=== PATIENT | female | born 1970 | race Caucasian/White ===

== ENCOUNTER 2017-04-30 09:34 | Inpatient (IN) | payer BC ==
[2017-04-30] MEDS ORDERED: Celecoxib 200 MG Cap PO ONE (09:45)
[2017-04-30] MEDS ORDERED: Acetaminophen 500 MG Tab PO ONE (09:45)
[2017-04-30] MEDS ORDERED: Gabapentin 300 MG Cap PO ONE (09:45)
[2017-04-30] MEDS ORDERED: Scopolamine 1.5 MG Transdermal Patch TOP SCH (09:45)
[2017-04-30] MEDS ORDERED: Dextrose 5%-Lactated Ringers 1,000 ML IV SCH ×2 (10:00→17:00)
[2017-04-30] MEDS ORDERED: Ropivacaine 60 ML, Dexamethasone 8 MG, EPINEPHrine 0.4 MG, Sodium Chloride 0.9% 17.6 ML NERVRT SCH ×4 (11:00)
[2017-04-30] MEDS ORDERED: Propofol 200 MG/20 ML SDV ONE (11:00)
[2017-04-30] MEDS ORDERED: Ketamine 500 MG/5 ML MDV IV ONE (11:00)
[2017-04-30] MEDS ORDERED: Lactated Ringers 1,000 ML ONE (11:00)
[2017-04-30] MEDS ORDERED: Lidocaine 2% 100 MG/5 ML Syringe IVPUSH ONE (11:00)
[2017-04-30] MEDS ORDERED: Neostigmine Methylsulfate 1 MG/ML 5 ML Syringe ONE (11:00)
[2017-04-30] MEDS ORDERED: Ondansetron 4 MG/2 ML SDV ONE (11:00)
[2017-04-30] MEDS ORDERED: Succinylcholine 200 MG/10 ML MDV ONE (11:00)
[2017-04-30] MEDS ORDERED: Rocuronium 50 MG/5 ML Vial ONE (11:00)
[2017-04-30] MEDS ORDERED: Dexamethasone 4 MG/ML SDV ONE (11:00)
[2017-04-30] MEDS ORDERED: Glycopyrrolate 0.2 MG/ML 5 ML MDV ONE (11:00)
[2017-04-30] MEDS ORDERED: fentaNYL 250 MCG/5 ML SDV ONE (11:01)
[2017-04-30] MEDS ORDERED: cefOXitin 2 GM Vial ONE (11:46)
[2017-04-30] MEDS: cefOXitin 2 GM in Sodium Chloride 0.9% 50 ML IV ONE ×2 (12:44→17:36)
[2017-04-30] MEDS ORDERED: Ondansetron 4 MG/2 ML SDV IVPUSH ONE (15:52)
[2017-04-30] MEDS ORDERED: hydrOXYzine HCl 100 MG/2 ML SDV IM ONE ×3 (16:45→17:46)
[2017-04-30] MEDS ORDERED: Insulin Aspart 100 Units/ML 3 ML Pen SUBCUT PRN (17:00)
[2017-04-30] MEDS ORDERED: hydrOXYzine HCl 100 MG/2 ML SDV IM PRN ×2 (17:00→18:42)
[2017-04-30] MEDS ORDERED: diphenhydrAMINE 50 MG/ML SDV IVPUSH PRN (17:00)
[2017-04-30] MEDS ORDERED: 50% Dextrose in Water 50 ML Syringe IVPUSH PRN (17:00)
[2017-04-30] MEDS ORDERED: Ondansetron 4 MG/2 ML SDV IVPUSH PRN (17:00)
[2017-04-30] MEDS ORDERED: Metoclopramide 10 MG/2 ML SDV IVPUSH PRN (17:00)
[2017-04-30] MEDS ORDERED: Labetalol 20 MG/4 ML Syringe IVPUSH PRN (17:00)
[2017-04-30] MEDS ORDERED: Glucagon,Human Recombinant 1 MG Vial IM PRN (17:00)
[2017-04-30] MEDS: Lidocaine 0.4%/D5W 2 GM/500 ML BAG IV SCH (17:35)
[2017-04-30] MEDS ORDERED: Meperidine PF 100 MG/ML Syringe IM ONE ×2 (17:40)
[2017-04-30] MEDS ORDERED: MVI, Adult with Vitamin K 10 ML, Thiamine 200 MG, Chromium/Copper/Mang/Selen/Zn 1 ML in... IV SCH ×4 (18:00)
[2017-04-30] MEDS: Pantoprazole 40 MG Vial IVPUSH SCH (18:10)
[2017-04-30] MEDS: Acetaminophen Soln 650 MG/20.3 ML UD Cup PO SCH ×2 (18:10→23:23)
[2017-04-30] MEDS: cefOXitin 2 GM in Sodium Chloride 0.9% 50 ML IV SCH ×2 (18:20→23:23)
[2017-04-30] MEDS: Gabapentin 250 MG/5 ML Solution ML 470 ML Bottle PO SCH (20:38)
[2017-04-30] MEDS: Heparin Sodium 5,000 Units/ML Vial SUBCUT SCH (20:38)
[2017-04-30] MEDS ORDERED: Insulin Detemir 100 Units/ML 3 ML Pen SUBCUT SCH (21:00)
[2017-04-30] MEDS ORDERED: Insulin Aspart 100 Units/ML 3 ML Pen SUBCUT STA (22:29)
[2017-04-30] MEDS ORDERED: Insulin Detemir 100 Units/ML 3 ML Pen SUBCUT STA (22:29)
[2017-05-01] MEDS ORDERED: Iohexol 647 MG/ML 50 ML SDV PO STA (04:00)
[2017-05-01] MEDS ORDERED: Insulin Detemir 100 Units/ML 3 ML Pen SUBCUT STA (04:31)
[2017-05-01] MEDS ORDERED: Insulin Aspart 100 Units/ML 3 ML Pen SUBCUT STA (04:31)
[2017-05-01] MEDS: Heparin Sodium 5,000 Units/ML Vial SUBCUT SCH ×2 (05:08→11:58)
[2017-05-01] MEDS: cefOXitin 2 GM in Sodium Chloride 0.9% 50 ML IV SCH (05:12)
[2017-05-01] MEDS: Acetaminophen Soln 650 MG/20.3 ML UD Cup PO SCH ×4 (05:18→23:49)
[2017-05-01] MEDS: Lidocaine 0.4%/D5W 2 GM/500 ML BAG IV SCH (05:22)
[2017-05-01] MEDS ORDERED: Betamethasone Dipropionate/Clotrimazole 0.05-1% Crm 15 GM Tube TOP PRN (07:26)
[2017-05-01] MEDS ORDERED: Enoxaparin 60 MG/0.6 ML Syringe SUBCUT SCH ×2 (07:30→17:00)
[2017-05-01] MEDS ORDERED: Celecoxib 200 MG Cap PO SCH (08:00)
--- NOTE | 2017-05-01 08:28 | CR ---
UGI wo KUB HISTORY: eval RYGBP FINDINGS: After administration of oral contrast, upright views were obtained. Post operative changes gastric bypass. Surgical drains in place. No evidence for leak. Contrast passes freely into proximal small bowel loops. IMPRESSION: No evidence for leak or obstruction.
[2017-05-01] MEDS: SCOPOLAMINE PATCH CHECK TOP SCH (08:56)
[2017-05-01] MEDS: amLODIPine 10 MG Tab PO SCH (08:58)
[2017-05-01] MEDS: Cetirizine 10 MG Tab PO SCH (08:59)
[2017-05-01] MEDS ORDERED: Non-Formulary Medication 1 Each (Levothyroxine Sodium [Synthroid] 137 MCG) PO SCH (09:00)
[2017-05-01] MEDS ORDERED: MVI, Adult with Vitamin K 10 ML, Chromium/Copper/Mang/Selen/Zn 1 ML, Thiamine 200 MG in... IV SCH ×4 (09:00)
[2017-05-01] MEDS ORDERED: Non-Formulary Medication 1 Each (Cetirizine Hcl [Zyrtec] 10 MG) PO SCH (09:00)
[2017-05-01] MEDS: Metoprolol Succinate 50 MG Tab.ER PO SCH ×2 (09:00→22:03)
[2017-05-01] MEDS: Gabapentin 250 MG/5 ML Solution ML 470 ML Bottle PO SCH ×3 (09:41→22:03)
--- NOTE | 2017-05-01 09:44 | PN ---
DATE OF SERVICE: 05/01/2017 SUBJECTIVE: Latanya is postop day #1. She states her pain is controlled. Temperature max of 100. Blood sugar on 04/30/2017 at 1645 hours was 268; at 2248 hours, it was 356; and this morning, at 0509 hours, it was 491. She has been getting coverage for her sugars. Intake was 3280. Output 515. MAGNO drain put out 65 mL of a light pink serosanguineous drainage. Labs this morning; white count 11.5, hemoglobin 10.5, potassium is 5.9, creatinine 4.2, and glucose 445. BNP 734. REVIEW OF SYSTEMS: Remainder of review of systems negative for any pertinent positives and negatives. OBJECTIVE: GENERAL: Latanya Cotto is a pleasant 46-year-old female. She is alert and orientated. VITAL SIGNS: TPR is 99.5, 83, 18, and blood pressure 161/73. HEENT: Negative. NECK: Supple. HEART: Regular rate and rhythm. LUNGS: Clear. ABDOMEN: Dressings dry and intact. Abdominal binder is on. MAGNO drain intact. EXTREMITIES: SCDs are on, and there is trace peripheral edema. ASSESSMENT: Diagnostic laparoscopy with laparoscopic sleeve gastrectomy and liver biopsy for morbid obesity, hepatomegaly, and extreme immobility of abdominal wall and small bowel mesentery. Date of surgery, 04/30/2017. PLAN: 1. Step-2 gastric bypass diet without cereal. 2. All sugar-free foods, liquids, no juice. 3. IV to continue running at 175. 4. Check CBC, CMP, mag, phos, and BNP. 5. Consult Dr. Lang regarding diabetes uncontrolled, chronic kidney disease, congestive heart failure, and consultation regarding medication, consult per phone call. 6. Daily PT and INR. 7. Amlodipine 10 mg p.o. daily. 8. Betamethasone-clotrimazole 1 applicator topical b.i.d. p.r.n. rash. 9. Cetirizine, Zyrtec, 10 mg p.o. daily. 10.Levothyroxine 137 mcg p.o. daily. 11.Coumadin 7.5 mg p.o. one time, ask in a.m. 12.Metoprolol succinate 50 mg p.o. b.i.d. 13.Good pulmonary toilet. 14.We will evaluate p.r.n. or in a.m. Yissel Steinberg PA-C /[id number]
[2017-05-01] MEDS ORDERED: Insulin Aspart 100 Units/ML 3 ML Pen SUBCUT ONE ×2 (10:15→17:00)
[2017-05-01] MEDS ORDERED: Insulin Detemir 100 Units/ML 3 ML Pen SUBCUT SCH ×2 (10:43→21:00)
[2017-05-01] MEDS: Lactated Ringers 1,000 ML IV SCH ×2 (11:09→23:28)
--- NOTE | 2017-05-01 12:53 | PCM.CONS ---
H&P History of Present Illness - General Date of Service: 05/01/17 Admit Problem/Dx: Source of Information: Patient, Family, Provider, RN Notes Reviewed History Limitations: Reports: No Limitations - History of Present Illness Initial Comments - Free Text/Narative: This patient is a 46-year-old woman who I been asked to see by Dr. Biggs for further suggestions concerning evaluation and management of acute on chronic kidney injury, hyperkalemia, and hyperglycemia. She was admitted yesterday for Eliazar-en-Y gastric bypass surgery for chronic morbid obesity. There were unable to complete the gastric bypass so a gastric sleeve was placed. At baseline she has chronic kidney disease stage III, since admission her creatinine has increased from 2.4 up to 4.2. Glucose levels have been elevated and with acute kidney injury her potassium has become elevated. She reports that she is feeling relatively well denies any symptoms of chest pain or pressure or significant shortness of breath. Abdomen Pain Score (Numeric/FACES): 0 - Related Data Allergies/Adverse Reactions: Allergies Allergy/AdvReac Type Severity Reaction Status Date / Time chocolate flavor Allergy Rash Verified 04/30/17 10:16 Penicillins Allergy Rash Verified 04/30/17 10:16 Home Medications: Home Meds Ascorbic Acid [Vitamin C] 100 mg PO DAILY 04/26/17 [History] Aspirin [Halfprin] 81 mg PO DAILY 04/26/17 [History] Cetirizine HCl [Zyrtec] 10 mg PO DAILY 04/26/17 [History] Clotrimazole/Betamethasone Dip [Lotrisone Cream] 1 applic TOP BID PRN 04/26/17 [ History] Ergocalciferol (Vitamin D2) [Vitamin D2] 50,000 units PO WEEKLY 04/26/17 [ History] Ferrous Sulfate 140 mg PO DAILY 04/26/17 [History] Furosemide [Lasix] 40 mg PO DAILY 04/26/17 [History] Gabapentin [Neurontin] 300 mg PO BID 04/26/17 [History] Insulin Aspart [Novolog Flexpen] 40 - 45 units SQ TIDMEALS 04/26/17 [History] Insulin Isophane NPH, Human [HumuLIN N] 35 unit SUBCUT BIDAC 04/26/17 [History] Levothyroxine Sodium [Synthroid] 137 mcg PO DAILY 04/26/17 [History] Magnesium Oxide [Magnesium] 400 mg PO DAILY 04/26/17 [History] Metoprolol Succinate [Metoprolol Succinate] 100 mg PO DAILY 04/26/17 [History] Patiromer Calcium Sorbitex [Veltassa] 8.4 gm PO DAILY 04/26/17 [History] Rosuvastatin [Crestor] 20 mg PO WITHDINNER 04/26/17 [History] Warfarin [Coumadin] 5 mg PO FR 04/26/17 [History] hydrOXYzine Pamoate [Vistaril] 25 mg PO Q6H PRN 04/26/17 [History] Furosemide [Lasix] 60 ng PO DAILY 04/30/17 [History] Sodium Bicarbonate 650 mg PO BID 04/30/17 [History] Warfarin [Coumadin] 7.5 mg PO SUMOTUWETHSA 04/30/17 [History] amLODIPine [Norvasc] 10 mg PO DAILY 04/30/17 [History] hydrALAZINE HCl [Hydralazine HCl] 25 mg PO TID 04/30/17 [History] Past Medical History HEENT History: Reports: Allergic Rhinitis, Cataract Cardiovascular History: Reports: Afib, High Cholesterol, Hypertension Respiratory History: Reports: Sleep Apnea Gastrointestinal History: Reports: Hemorrhoids Genitourinary History: Reports: Renal Disease, Other (See Below) Other Genitourinary History: stage 4 kidney disease 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: Endocrine/Metabolic History: Reports: Diabetes, Type II, Hypothyroidism, Obesity /BMI 30+ Hematologic History: Reports: Iron Deficiency Dermatologic History: Reports: Other (See Below) Other Dermatologic History: rash in folds - Infectious Disease History Infectious Disease History: Reports: MRSA, Other (See Below) Other Infectious Disease History: MRSA left leg 3 yrs ago - Past Surgical History Cardiovascular Surgical History: Reports: Other (See Below) Other Cardiovascular Surgeries/Procedures: dialysis shunt left arm Respiratory Surgical History: Reports: Lung Biopsies GI Surgical History: Reports: Cholecystectomy Female Surgical History: Reports: Other (See Below) Other Female Surgeries/Procedures: dialysis shunt left arm Social & Family History - Tobacco Use Smoking Status *Q: Former Smoker Years of Tobacco use: 10 Used Tobacco, but Quit: Yes Month Tobacco Last Used: 0 Second Hand Smoke Exposure: Yes - Caffeine Use Caffeine Use: Reports: Coffee, Tea - Recreational Drug Use Recreational Drug Use: No H&P Review of Systems - Review of Systems: Review Of Systems: See Below General: Reports: Weakness. Denies: Fever, Chills HEENT: Reports: No Symptoms Pulmonary: Reports: No Symptoms Cardiovascular: Reports: No Symptoms Gastrointestinal: Reports: Abdominal Pain. Denies: Black Stool, Bloody Stool, Constipation, Diarrhea, Difficulty Swallowing, Distension, Nausea, Vomiting Genitourinary: Reports: No Symptoms Musculoskeletal: Reports: No Symptoms Exam - Exam Exam: See Below - Vital Signs Vital Signs: Last Vital Signs Temp 99.5 F 05/01/17 11:14 Pulse 83 05/01/17 09:00 Resp 18 05/01/17 11:14 BP 161/73 H 05/01/17 09:00 Pulse Ox 90 L 05/01/17 11:14 Weight: 436 lb 6.4 oz - Exam Quality Assessment: Urinary Catheter, DVT Prophylaxis General: Alert, Oriented, Cooperative, Mild Distress Neck: Supple, Trachea Midline, +2 Carotid Pulse wo Bruit Lungs: Clear to Auscultation, Normal Respiratory Effort Cardiovascular: Regular Rate, Regular Rhythm, Normal S1, Normal S2. No: Systolic Murmur, Diastolic Murmur GI/Abdominal Exam: Soft, No Organomegaly, Tender. No: Distended, Guarding, Rigid, Rebound Back Exam: Normal Inspection, Full Range of Motion Extremities: Non-Tender, No Pedal Edema - Patient Data Lab Results Last 24 hrs: Laboratory Results - last 24 hr 05/01/17 05/01/17 Range/Units 05:00 05:00 WBC 11.5 H (4.5-11.0) K/uL RBC 3.42 (3.30-5.50) M/uL Hgb 10.5 L (12.0-15.0) g/dL Hct 33.7 L (36.0-48.0) % MCV 99 H (80-98) fL MCH 31 (27-31) pg MCHC 31 L (32-36) % Plt Count 181 (150-400) K/uL Sodium 139 L (140-148) mmol/L Potassium 5.9 H (3.6-5.2) mmol/L Chloride 108 (100-108) mmol/L Carbon Dioxide 18 L (21-32) mmol/L Anion Gap 18.9 H (5.0-14.0) mmol/L BUN 54 H (7-18) mg/dL Creatinine 4.2 H* D (0.6-1.0) mg/dL Est Cr Clr Drug Dosing 18.29 mL/min Estimated GFR (MDRD) 11 L (>60) Glucose 445 H* (74-106) mg/dL Calcium 8.4 L (8.5-10.1) mg/dL Phosphorus 4.0 (2.5-4.9) mg/dL Magnesium 2.1 (1.8-2.4) mg/dL Total Bilirubin 0.5 (0.2-1.0) mg/dL AST 37 (15-37) U/L ALT 56 (12-78) U/L Alkaline Phosphatase 49 (46-116) U/L NT-Pro-B Natriuret Pep 734 H (5-125) pg/mL Total Protein 6.4 (6.4-8.2) g/dL Albumin 2.8 L (3.4-5.0) g/dL Globulin 3.6 H (2.3-3.5) g/dL Albumin/Globulin Ratio 0.8 L (1.2-2.2) Result Diagrams: 05/01/17 05:00 05/01/17 05:00 Consult PN Assessment/Plan Procedures: Procedures BLOOD TYPING SEROLOGIC ABO (07/27/16) BLOOD TYPING SEROLOGIC RH(D) (07/27/16) CT THORAX W/O DYE (04/02/14) EXTREMITY STUDY (06/14/16) RBC ANTIBODY SCREEN (07/27/16) ROUTINE VENIPUNCTURE (07/27/16) US EXAM OF HEAD AND NECK (10/30/13) Problem List Initiated/Reviewed/Updated: Yes My Orders Last 24 Hours: My Active Orders 05/01/17 10:43 Insulin Detemir [Levemir] 20 unit SUBCUT BEDTIME 05/01/17 17:00 BASIC METABOLIC PANEL,BMP [CHEM] Stat Plan: ASSESSMENT AND RECOMMENDATIONS ACUTE ON CHRONIC KIDNEY INJURY-at baseline has chronic kidney disease stage III , admission creatinine 2.4, now up to 4.2. Likely prerenal in nature, secondary to postoperative intravascular volume depletion with third spacing. Urine output has improved over the past several hours with ongoing IV hydration. -Continue IV fluids until tomorrow -Closely monitor urine output -Recheck renal function later today and again in a.m. HYPERKALEMIA-likely secondary to acute kidney injury -IV fluids as above -Recheck potassium later today and again in a.m. -Consider rectal Kayexalate if potassium increases any further. TYPE 2 DIABETES MELLITUS-glucose levels significantly elevated after surgery -4 times a day glucometers -Increase long-acting insulins to 20 units daily -Continue sliding scale NovoLog Requesting Provider: SEALS Date Consult Requested: 05/01/17 Reason for Consult: Acute kidney injury, chronic kidney disease, hyperkalemia, hyperg Patient History Reviewed: Yes Notified Requestor: Yes
[2017-05-01] MEDS ORDERED: Warfarin 2.5 MG Tab PO ONE (13:00)
[2017-05-01] MEDS ORDERED: Warfarin 5 MG Tab PO ONE (13:00)
[2017-05-01] MEDS: MVI, Adult with Vitamin K 10 ML, Thiamine 200 MG, Chromium/Copper/Mang/Selen/Zn 1 ML in... IV SCH ×4 (17:04)
[2017-05-01] MEDS: Insulin Aspart 100 Units/ML 3 ML Pen SUBCUT SCH ×2 (17:04→22:08)
[2017-05-01] MEDS: Pantoprazole 40 MG Vial IVPUSH SCH (17:09)
[2017-05-01] MEDS ORDERED: Sodium Polystyrene Sulfonate 15 GM/60 ML Susp 60 ML Bot PO ONE (18:27)
[2017-05-01] MEDS: Enoxaparin 120 MG/0.8 ML Syringe SUBCUT SCH (22:04)
[2017-05-01] MEDS: Sodium Bicarbonate 650 MG Tab PO SCH (22:04)
--- NOTE | 2017-05-01 23:41 | PCM.SN ---
- Free Text/Narrative Note: labs results at 2300. Potassium 5.6, Creatinine 4.5, blood glucose 300 a; improved p; K+ is decreased from 6.1, creatinine is unchanged at 4.5 , blood glucose is decreased. will continue present plan of care, recheck labs in am.
[2017-05-02] MEDS: Insulin Aspart 100 Units/ML 3 ML Pen SUBCUT SCH ×5 (04:26→22:07)
[2017-05-02] MEDS: Lactated Ringers 1,000 ML IV SCH ×2 (05:31→11:23)
[2017-05-02] MEDS: Acetaminophen Soln 650 MG/20.3 ML UD Cup PO SCH ×4 (05:50→23:56)
[2017-05-02] MEDS: Insulin Detemir 100 Units/ML 3 ML Pen SUBCUT SCH ×2 (08:08→22:05)
[2017-05-02] MEDS: SCOPOLAMINE PATCH CHECK TOP SCH (08:08)
[2017-05-02] MEDS ORDERED: Cyanocobalamin (Vitamin B12) 1,000 MCG/ML SDV IM ONE (09:00)
[2017-05-02] MEDS ORDERED: Insulin Detemir 100 Units/ML 3 ML Pen SUBCUT SCH (09:00)
[2017-05-02] MEDS: Gabapentin 250 MG/5 ML Solution ML 470 ML Bottle PO SCH ×3 (09:05→22:03)
[2017-05-02] MEDS: amLODIPine 10 MG Tab PO SCH (09:06)
[2017-05-02] MEDS: Metoprolol Succinate 50 MG Tab.ER PO SCH ×2 (09:10→22:08)
[2017-05-02] MEDS: Cetirizine 10 MG Tab PO SCH (09:11)
[2017-05-02] MEDS: Sodium Bicarbonate 650 MG Tab PO SCH ×2 (09:12→22:08)
--- NOTE | 2017-05-02 09:43 | PN ---
DATE OF SERVICE: 05/02/2017 SUBJECTIVE: Latanya is postop day #2. Hemoglobin was 8.9, INR 1.15, potassium 5.5, creatinine 4.6, and BNP 629. Glucose last checked was 243. MAGNO put out 255 mL of a light pink serosanguineous drainage. Latanya states her pain is controlled. She is tolerating a step-2 gastric bypass diet without cereal. Mullen catheter remains in for accurate intake and output. OBJECTIVE: GENERAL: Latanya is a pleasant 46-year-old female. VITAL SIGNS: TPR is 99.4, 71, 16, and blood pressure 149/62. HEENT: Negative. NECK: Supple. HEART: Regular rate and rhythm. LUNGS: Clear. ABDOMEN: Dressings have been removed. Incisions look good. Abdominal binder is on. MAGNO drain intact. EXTREMITIES: Reveal peripheral edema. ASSESSMENT: 1. Diagnostic laparoscopy with laparoscopic sleeve gastrectomy and liver biopsy for morbid obesity, hepatomegaly, extreme immobility of abdominal wall and small bowel mesentery. Date of surgery, 04/30/2017. 2. Vowsr-kj-hekfqpt kidney injury. 3. Hyperkalemia. 4. Diabetes type 2. PLAN: 1. Levemir 30 units b.i.d. to give a.m. dose now. 2. Coumadin 7.5 mg p.o., ask in a.m. 3. Check CMP, CBC, BMP, mag, and phos in a.m. 4. Communication order to give 3 med cups and to drink one every 20 minutes and record at bedside. 5. Good pulmonary toilet. 6. We will evaluate p.r.n. or in a.m. Yissel Steinberg PA-C /[id number]
[2017-05-02] MEDS ORDERED: Sodium Polystyrene Sulfonate 15 GM/60 ML Susp 60 ML Bot PO ONE (10:00)
--- NOTE | 2017-05-02 11:25 | OR ---
DATE OF PROCEDURE: 04/30/2017 PREOPERATIVE DIAGNOSIS: Morbid obesity. POSTOPERATIVE DIAGNOSES: 1. Morbid obesity. 2. Marked hepatomegaly. 3. 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 OPERATIVE PROCEDURE: Diagnostic laparoscopy with: 1. Laparoscopic sleeve gastrectomy (38518). 2. Ishmael-Cut needle liver biopsy (30142). ANESTHESIA: General. RISK AND COMPLIANCE ANALYTICS DIRECTOR: Yissel Steinberg PA-C. INDICATIONS FOR PROCEDURE: This is a 46-year-old presenting with advanced comorbidities associated with severe morbid obesity, present BMI is 63, and she has advanced diabetes and renal insufficiency with a preoperative creatinine of 2.5 and history of some degree of cardiomyopathy. After lengthy discussion and clearance by Cardiology and a renal specialist, the decision was made to proceed with a gastric bypass procedure. As discussed with the patient preoperatively, patients in her subgroup at times will have severely limited mobility of the small bowel, which might necessitate converting from a gastric bypass to a sleeve gastrectomy. Otherwise, potential risks per se, including bleeding, infection, leaks from various GI tract closures, problems with bowel obstruction over time, as well as possibility of cardiopulmonary, septic, or hemorrhagic complications leading to were all discussed, and the patient wishes to proceed. DETAILS OF THE PROCEDURE: The patient was taken to the operating room and placed in a supine position. After general endotracheal anesthesia was induced, the abdomen was prepped and draped, and the patient converted to lithotomy position. An oral gastric tube was placed. At this point, 15 cm inferior, 5 cm left of xiphoid process, a transverse incision was made and the peritoneal cavity entered under direct vision with an Optiview trocar and inflated to 15 mmHg pressure with CO2. Laparoscope was then reinserted. No underlying trocar insertion site injuries were seen. With internal monitoring, the bilateral subcostal transversus abdominis plane blocks were placed, and at that point, 5 additional trocars were placed across the upper and mid abdomen. It was noted that the patient had a quite striking hepatomegaly with liver being grossly fatty infiltrated and at least 3 times normal size. Ishmael-Cut needle biopsies were obtained from the left lobe of the liver. Minimal bleeding from the biopsy site was controlled with electrocautery. At this point, the omentum was divided in the midline up to the level of the transverse colon. By this time, it was quite notable that the patient had an extremely immobile abdominal wall, perhaps related to longstanding diabetes with increased density of her soft tissues per se. As one then began to mobilize the small bowel, as one got past around 100 cm from the ligament of Treitz, the beginning of the small bowel was extremely immobile as well, and a satisfactory Eliazar-en-Y gastric bypass, in terms of a safe gastrojejunostomy without significant tension, would be difficult to achieve, and a decision to proceed with a sleeve gastrectomy was made at that time. At this point, attention was taken to the omentum along the mid greater curvature. This was divided away from the greater curvature of the stomach up to the short gastric vessels, including the highest and posterior short gastric vessels. The attachments to the fundus of the stomach medially over the left rajat were then divided as well, and at that point, some areolar adhesions behind that portion of the stomach were taken down as well. The dissection then continued distally along the greater curvature to a point roughly 3 cm proximal to the pyloric sphincter, which at that point had been marked with electrocautery. Due to the immobility of the abdominal wall, three additional trocars were placed during the course of the procedure, as some of the standard trocar locations simply did not allow us to manipulate the staplers and other instruments in an appropriate angle, due to the severe immobility of the abdominal wall. At this point, an antral resection line and extending upward inferior to the incisura angularis was marked out anteriorly on the stomach with electrocautery, and the first three firings of the sleeve were then accomplished, beginning 3 cm proximal to the pyloric sphincter and care taken to avoid overtightening at the incisura angularis. The first three firings were GAVIN black loads. Following this, a 32-Kinyarwanda chest tube was then placed orally per Anesthesia and positioned along the lesser curvature, from there into the antrum. The remainder of the sleeve gastrectomy was then accomplished with a combination of reinforced black and purple loads, maintaining reasonably snug apposition of the staple line to the chest tube as it lay across the lesser curvature. Upon completion of the gastrectomy, the staple lines were inspected and found to be satisfactorily intact. At this point, the fibrin sealant was placed along the length of the sleeve gastrectomy, focusing on the proximal end. The omentum was then tacked up along the edges of the sleeve gastrectomy as well with some 3-0 Vicryl stitch. At that point, no further problems were noted. The chest tube had been pulled back roughly into the midportion of the remaining gastric sleeve and air injected to distend the sleeve while it was irrigated with antibiotic- containing saline solution. No bleeding or air leaks were visible. At that point, no further problems were noted. The specimen was delivered through the left lateral trocar site, and a single Goldy-Alexander drain was then placed along the area of the proximal end of the staple line and, from there, into the splenic fossa, and taken out through the left lateral trocar sites. With no further problems noted, the trocars were removed, the fascia at the lateral site where the stomach had been delivered was closed with 0 Vicryl stitch, and the skin at each incision was closed with 4-0 Vicryl skin stitch. Dressing was applied. The patient was taken to the recovery room in satisfactory condition. There were no evident complications. Physician's certified anesthesiologist assistant Yissel Steinberg played an essential role in assisting in this case, helping to position the patient, retract structures as needed, as well as suturing and cutting sutures as indicated. Her presence improved patient safety and decreased operative time. Ventura Biggs MD /[id number]
[2017-05-02] MEDS ORDERED: Warfarin 2.5 MG Tab PO ONE (13:00)
--- NOTE | 2017-05-02 13:52 | PCM.CONSN ---
- General Info Date of Service: 05/02/17 Subjective Update: This patient has been stable over the past 24 hours, vital signs of been good and she has remained afebrile. Urine output has been more than adequate since yesterday morning, creatinine seems to a peaked and potassium is improved. Blood glucose levels under better control with change in insulin regimen. Functional Status: Reports: Pain Controlled, Tolerating Diet, Ambulating - Review of Systems General: Denies: Fever, Chills Pulmonary: Reports: No Symptoms Cardiovascular: Reports: No Symptoms Gastrointestinal: Reports: Abdominal Pain, Flatus. Denies: Nausea, Vomiting - Patient Data Vitals - Most Recent: Last Vital Signs Temp 98.7 F 05/02/17 11:25 Pulse 74 05/02/17 11:25 Resp 18 05/02/17 11:25 BP 165/75 H 05/02/17 11:25 Pulse Ox 96 05/02/17 11:25 Weight - Most Recent: 436 lb 6.4 oz I&O - Last 24 Hours: Intake & Output 05/01/17 05/02/17 05/02/17 22:59 06:59 14:59 Intake Total 3009 2791 890 Output Total 445 825 85 Balance 2564 1966 805 Lab Results Last 24 Hours: Laboratory Results - last 24 hr 05/01/17 05/01/17 05/02/17 Range/Units 17:18 23:15 04:20 WBC 11.3 H (4.5-11.0) K/uL RBC 2.84 L (3.30-5.50) M/uL Hgb 8.9 L (12.0-15.0) g/dL Hct 28.2 L (36.0-48.0) % MCV 99 H (80-98) fL MCH 31 (27-31) pg MCHC 32 (32-36) % Plt Count 164 (150-400) K/uL PT (9.5-12.0) sec INR (0.80-1.20) Sodium 138 L 139 L (140-148) mmol/L Potassium 6.1 H* 5.8 H (3.6-5.2) mmol/L Chloride 109 H 109 H (100-108) mmol/L Carbon Dioxide 17 L 20 L (21-32) mmol/L Anion Gap 18.1 H 15.8 H (5.0-14.0) mmol/L BUN 59 H 57 H (7-18) mg/dL Creatinine 4.5 H* 4.5 H* (0.6-1.0) mg/dL Est Cr Clr Drug Dosing 17.07 17.07 mL/min Estimated GFR (MDRD) 11 L 11 L (>60) Glucose 388 H 300 H (74-106) mg/dL Calcium 7.8 L 7.5 L (8.5-10.1) mg/dL Phosphorus (2.5-4.9) mg/dL Magnesium (1.8-2.4) mg/dL Total Bilirubin (0.2-1.0) mg/dL AST (15-37) U/L ALT (12-78) U/L Alkaline Phosphatase (46-116) U/L NT-Pro-B Natriuret Pep (5-125) pg/mL Total Protein (6.4-8.2) g/dL Albumin (3.4-5.0) g/dL Globulin (2.3-3.5) g/dL Albumin/Globulin Ratio (1.2-2.2) 05/02/17 05/02/17 Range/Units 04:20 04:20 WBC (4.5-11.0) K/uL RBC (3.30-5.50) M/uL Hgb (12.0-15.0) g/dL Hct (36.0-48.0) % MCV (80-98) fL MCH (27-31) pg MCHC (32-36) % Plt Count (150-400) K/uL PT 12.4 H (9.5-12.0) sec INR 1.15 (0.80-1.20) Sodium 140 (140-148) mmol/L Potassium 5.5 H (3.6-5.2) mmol/L Chloride 110 H (100-108) mmol/L Carbon Dioxide 21 (21-32) mmol/L Anion Gap 14.5 H (5.0-14.0) mmol/L BUN 56 H (7-18) mg/dL Creatinine 4.6 H* (0.6-1.0) mg/dL Est Cr Clr Drug Dosing 16.70 mL/min Estimated GFR (MDRD) 10 L (>60) Glucose 243 H (74-106) mg/dL Calcium 7.7 L (8.5-10.1) mg/dL Phosphorus 3.7 (2.5-4.9) mg/dL Magnesium 2.1 (1.8-2.4) mg/dL Total Bilirubin 0.3 (0.2-1.0) mg/dL AST 53 H (15-37) U/L ALT 85 H (12-78) U/L Alkaline Phosphatase 39 L (46-116) U/L NT-Pro-B Natriuret Pep 629 H (5-125) pg/mL Total Protein 5.4 L (6.4-8.2) g/dL Albumin 2.4 L (3.4-5.0) g/dL Globulin 3.0 (2.3-3.5) g/dL Albumin/Globulin Ratio 0.8 L (1.2-2.2) Med Orders - Current: Current Medications Acetaminophen (Tylenol) 650 mg PO Q6H [facility] Last Admin: 05/02/17 11:23 Dose: 650 mg Amlodipine Besylate (Norvasc) 10 mg PO DAILY [facility] Last Admin: 05/02/17 09:06 Dose: 10 mg Betamethasone/Clotrimazole (Lotrisone) 0 gm TOP BID PRN PRN Reason: Rash Cetirizine HCl (Zyrtec) 10 mg PO DAILY [facility] Last Admin: 05/02/17 09:11 Dose: 10 mg Dextrose/Water (Dextrose 50% In Water) 50 ml IVPUSH ONETIME PRN PRN Reason: ACCUCHECK LESS THAN 70 Diphenhydramine HCl (Benadryl) 25 - 50 mg IVPUSH Q4H PRN PRN Reason: ITCHING Enoxaparin Sodium (Lovenox) 120 mg SUBCUT BEDTIME [facility] Last Admin: 05/01/17 22:04 Dose: 120 mg Gabapentin (Neurontin) 300 mg PO TID [facility] Last Admin: 05/02/17 13:16 Dose: 300 mg Glucagon (Glucagen) 1 mg IM ONETIME PRN PRN Reason: ACCUCHECK LESS THAN 70 Hydroxyzine HCl (Vistaril) 75 - 100 mg IM Q4H PRN PRN Reason: PAIN Last Admin: 04/30/17 22:45 Dose: 100 mg Lactated Ringer's (Ringers, Lactated) 1,000 mls @ 175 mls/hr IV ASDIRECTED [facility] Last Admin: 05/02/17 11:23 Dose: 175 mls/hr Multivitamins/Minerals 10 ml/Thiamine HCl 200 mg/ Chromium/Copper/Manganese/ Seleni/Zn 1 ml/ Lactated Ringer's 1,013 mls @ 175 mls/hr IV DAILY@1600 [facility] Last Admin: 05/01/17 17:04 Dose: 175 mls/hr Insulin Aspart (Novolog) 0 unit SUBCUT QIDACANDBED [facility] PRN Reason: Protocol Last Admin: 05/02/17 10:01 Dose: 6 units Insulin Detemir (Levemir) 30 unit SUBCUT BID [facility] Last Admin: 05/02/17 08:08 Dose: Not Given Labetalol HCl (Normodyne) 5 - 15 mg IVPUSH Q1H PRN PRN Reason: SBP over 160 OR DBP over 95 Levothyroxine Sodium 112 mcg/ (Levothyroxine Sodium 25 mcg) 137 mcg PO ACBREAKFAST [facility] Last Admin: 05/02/17 07:57 Dose: 137 mcg Metoclopramide HCl (Reglan) 10 mg IVPUSH Q6H PRN PRN Reason: NAUSEA NOT CONTROL BY ZOFRAN Metoprolol Succinate (Toprol Xl) 50 mg PO BID [facility] Last Admin: 05/02/17 09:10 Dose: 50 mg Scopolamine Patch (Check) 1 each TOP DAILY [facility] Stop: 05/02/17 17:01 Last Admin: 05/02/17 08:08 Dose: Not Given Ondansetron HCl (Zofran) 4 mg IVPUSH Q4H PRN PRN Reason: Nausea/Vomiting Pantoprazole Sodium (Protonix Iv) 40 mg IVPUSH Q24H [facility] Last Admin: 05/01/17 17:09 Dose: 40 mg Sodium Bicarbonate (Sodium Bicarbonate) 650 mg PO BID [facility] Last Admin: 05/02/17 09:12 Dose: 650 mg Discontinued Medications Acetaminophen (Tylenol Extra Strength) 1,000 mg PO ONETIME ONE Stop: 04/30/17 09:46 Last Admin: 04/30/17 10:17 Dose: 1,000 mg Cefoxitin Sodium (Mefoxin) Confirm Administered Dose 2 gm .ROUTE .STK-MED ONE Stop: 04/30/17 11:47 Last Admin: 04/30/17 13:53 Dose: 2 gm Celecoxib (Celebrex) 200 mg PO ONETIME ONE Stop: 04/30/17 09:46 Last Admin: 04/30/17 10:17 Dose: 200 mg Celecoxib (Celebrex) 200 mg PO DAILY@0800 [facility] Last Admin: 05/01/17 08:03 Dose: 200 mg Ropivacaine 60 ml/Dexamethasone 8 mg/Epinephrine HCl 0.4 mg/ Sodium Chloride 17.6 ml 0 ml NERVRT ASDIRECTED [facility] Last Admin: 04/30/17 13:30 Dose: 80 syringe Cyanocobalamin (Vitamin B12) 1,000 mcg IM ONETIME ONE Stop: 05/02/17 09:01 Last Admin: 05/02/17 09:07 Dose: 1,000 mcg Dexamethasone (Dexamethasone) Confirm Administered Dose 4 mg .ROUTE .STK-MED ONE Stop: 04/30/17 11:01 Fentanyl (Sublimaze) Confirm Administered Dose 250 mcg .ROUTE .STK-MED ONE Stop: 04/30/17 11:02 Gabapentin (Neurontin) 300 mg PO ONETIME ONE Stop: 04/30/17 09:46 Last Admin: 04/30/17 10:17 Dose: 300 mg Glycopyrrolate (Robinul) Confirm Administered Dose 1 mg .ROUTE .STK-MED ONE Stop: 04/30/17 11:01 Heparin Sodium (Porcine) (Heparin Sodium) 5,000 units SUBCUT Q8H [facility] Last Admin: 05/01/17 11:58 Dose: 5,000 units Hydroxyzine HCl (Vistaril) 100 mg IM ONETIME ONE Stop: 04/30/17 16:46 Last Admin: 04/30/17 16:33 Dose: 100 mg Hydroxyzine HCl (Vistaril) 75 - 100 mg IM Q4H PRN PRN Reason: pain Hydroxyzine HCl (Vistaril) 75 mg IM ONETIME ONE Stop: 04/30/17 17:42 Last Admin: 05/01/17 06:33 Dose: Not Given Hydroxyzine HCl (Vistaril) 50 mg IM ONETIME ONE Stop: 04/30/17 17:47 Last Admin: 04/30/17 17:59 Dose: 50 mg Dextrose/Lactated Ringer's (Dextrose 5%-Lactated Ringers) 1,000 mls @ 100 mls/ hr IV ASDIRECTED [facility] Last Admin: 04/30/17 11:23 Dose: 100 mls/hr Cefoxitin Sodium 2 gm/ Sodium (Chloride) 50 mls @ 100 mls/hr IV ONETIME ONE Stop: 04/30/17 11:44 Last Admin: 04/30/17 17:36 Dose: Not Given Lidocaine HCl/Dextrose (Lidocaine 2 Gm/D5w 500 Ml) 2 gm in 500 mls @ 30 mls/hr IV .[id number] [facility] PRN Reason: 2 MG/MIN Stop: 05/01/17 16:00 Last Admin: 05/01/17 05:22 Dose: 2 mg/min, 30 mls/hr Ketamine HCl 100 mg/ Sodium (Chloride) 100 mls @ 21 mls/hr IV ONETIME ONE PRN Reason: 5 MCG/KG/MIN Stop: 04/30/17 15:45 Last Admin: 04/30/17 17:34 Dose: Not Given Lactated Ringer's (Ringers, Lactated) Confirm Administered Dose 1,000 mls @ as directed .ROUTE .STK-MED ONE Stop: 04/30/17 11:01 Insulin Human Regular 100 unit (/ Sodium Chloride) 100 mls @ 0 mls/hr SUBCUT TITRATE [facility] PRN Reason: Protocol Dextrose/Lactated Ringer's (Dextrose 5%-Lactated Ringers) 1,000 mls @ 175 mls/ hr IV ASDIRECTED [facility] Last Admin: 05/01/17 02:26 Dose: 175 mls/hr Multivitamins/Minerals 10 ml/Thiamine HCl 200 mg/ Chromium/Copper/Manganese/ Seleni/Zn 1 ml/ Dextrose/Lactated Ringer's 1,013 mls @ 175 mls/hr IV DAILY@ 1600 [facility] Last Admin: 04/30/17 20:37 Dose: 175 mls/hr Cefoxitin Sodium 2 gm/ Sodium (Chloride) 50 mls @ 100 mls/hr IV Q6H [facility] Stop: 05/01/17 06:29 Last Admin: 05/01/17 05:12 Dose: 100 mls/hr Insulin Aspart (Novolog) 0 unit SUBCUT Q6H PRN; Protocol PRN Reason: PER CORRECTIONAL DOSING Last Admin: 04/30/17 16:45 Dose: 7 unit Insulin Aspart (Novolog) 0 unit SUBCUT ONETIME STA Stop: 04/30/17 22:30 Last Admin: 04/30/17 22:49 Dose: 20 unit Insulin Aspart (Novolog) 0 unit SUBCUT ONETIME STA Stop: 05/01/17 04:32 Last Admin: 05/01/17 05:11 Dose: 30 unit Insulin Aspart (Novolog) 10 unit SUBCUT ONETIME ONE Stop: 05/01/17 10:16 Last Admin: 05/01/17 10:18 Dose: 10 units Insulin Aspart (Novolog) 14 unit SUBCUT ONETIME ONE Stop: 05/01/17 17:01 Last Admin: 05/01/17 17:02 Dose: 14 units Insulin Detemir (Levemir) 15 unit SUBCUT BEDTIME [facility] Last Admin: 04/30/17 22:29 Dose: Not Given Insulin Detemir (Levemir) 0 unit SUBCUT ONETIME STA Stop: 04/30/17 22:30 Last Admin: 04/30/17 22:48 Dose: 25 unit Insulin Detemir (Levemir) 0 unit SUBCUT ONETIME ST[facility] Stop: 05/01/17 04:32 Last Admin: 05/01/17 05:09 Dose: 25 unit Insulin Detemir (Levemir) 20 unit SUBCUT BEDTIME [facility] Insulin Detemir (Levemir) 30 unit SUBCUT QPM [facility] Last Admin: 05/01/17 22:05 Dose: 30 units Insulin Detemir (Levemir) 0 unit SUBCUT DAILY [facility] Stop: 05/02/17 09:01 Last Admin: 05/02/17 08:00 Dose: 30 units Iohexol (Omnipaque-300) 50 ml PO .ASDIRECTED [facility] Stop: 05/01/17 04:01 Last Admin: 05/01/17 04:32 Dose: 50 ml Ketamine HCl (Ketalar) 35 mg IV ONETIME ONE Stop: 04/30/17 11:01 Last Admin: 04/30/17 17:34 Dose: Not Given Lidocaine HCl (Xylocaine 2%) 190 mg IVPUSH ONETIME ONE Stop: 04/30/17 11:01 Last Admin: 04/30/17 17:36 Dose: Not Given Meperidine HCl (Demerol) 100 mg IM ONETIME ONE Stop: 04/30/17 17:41 Last Admin: 05/01/17 06:32 Dose: Not Given Meperidine HCl (Demerol) 100 mg IM ONETIME ONE Stop: 04/30/17 17:41 Last Admin: 04/30/17 17:58 Dose: 100 mg Miscellaneous Information (Remove Patch) 1 ea TRDERM ONETIME ONE Stop: 05/02/17 10:01 Last Admin: 05/02/17 09:15 Dose: Not Given Neostigmine Methylsulfate (Neostigmine) Confirm Administered Dose 5 mg .ROUTE .STK-MED ONE Stop: 04/30/17 11:01 Ondansetron HCl (Zofran) Confirm Administered Dose 4 mg .ROUTE .STK-MED ONE Stop: 04/30/17 11:01 Ondansetron HCl (Zofran) 4 mg IVPUSH ONETIME ONE Stop: 04/30/17 15:53 Last Admin: 04/30/17 17:08 Dose: Not Given Propofol (Diprivan 20 Ml) Confirm Administered Dose 200 mg .ROUTE .STK-MED ONE Stop: 04/30/17 11:01 Rocuronium [place] (Zemuron) Confirm Administered Dose 100 mg .ROUTE .STK-MED ONE Stop: 04/30/17 11:01 Scopolamine (Transderm-Scop) 1.5 mg TOP Q72H [facility] Stop: 05/02/17 09:46 Last Admin: 04/30/17 10:17 Dose: 1.5 mg Sodium Chloride (Normal Saline) 500 ml IRR .STK-MED ONE Stop: 04/30/17 13:55 Last Admin: 04/30/17 13:54 Dose: 500 ml Sodium Polystyrene Sulfonate (Kayexalate) 30 gm PO ONETIME ONE Stop: 05/01/17 18:28 Last Admin: 05/01/17 19:00 Dose: 30 gm Sodium Polystyrene Sulfonate (Kayexalate) 30 gm PO ONETIME ONE Stop: 05/02/17 10:01 Last Admin: 05/02/17 10:10 Dose: 30 gm Succinylcholine Chloride (Quelicin) Confirm Administered Dose 200 mg .ROUTE .STK -MED ONE Stop: 04/30/17 11:01 Warfarin Sodium (Coumadin) 7.5 mg PO ONETIME ONE Stop: 05/01/17 13:01 Last Admin: 05/01/17 13:14 Dose: 7.5 mg Warfarin Sodium (Coumadin) 7.5 mg PO ONETIME ONE Stop: 05/02/17 13:01 Last Admin: 05/02/17 13:17 Dose: 7.5 mg - Exam Quality Assessment: Urine Catheter, DVT Prophylaxis General: Alert, Oriented, Cooperative, No Acute Distress Lungs: Clear to Auscultation, Normal Respiratory Effort Cardiovascular: Regular Rate, Regular Rhythm, No Murmurs GI/Abdominal Exam: Soft, No Organomegaly, No Distention, Tender. No: Distended , Guarding, Rigid, Rebound Extremities: Non-Tender, No Pedal Edema Skin: Warm, Dry Consult PN Assessment/Plan Procedures: Procedures BLOOD TYPING SEROLOGIC ABO (07/27/16) BLOOD TYPING SEROLOGIC RH(D) (07/27/16) CT THORAX W/O DYE (04/02/14) EXTREMITY STUDY (06/14/16) RBC ANTIBODY SCREEN (07/27/16) ROUTINE VENIPUNCTURE (07/27/16) US EXAM OF HEAD AND NECK (10/30/13) Problem List Initiated/Reviewed/Updated: Yes My Orders Last 24 Hours: My Active Orders 05/01/17 17:00 Insulin Aspart [NovoLOG] See Protocol SUBCUT QIDACANDBED 05/01/17 21:00 Enoxaparin [Lovenox] 120 mg SUBCUT BEDTIME Sodium Bicarbonate 650 mg PO BID 05/02/17 17:00 BASIC METABOLIC PANEL,BMP [CHEM] Stat Plan: ASSESSMENT AND RECOMMENDATIONS ACUTE ON CHRONIC KIDNEY INJURY-at baseline has chronic kidney disease stage III , admission creatinine 2.4, seems to have peaked at 4.6. Urine output is improved dramatically over the past 24 hours -Continue IV fluids until tomorrow -Closely monitor urine output -Recheck renal function later today and again in a.m. HYPERKALEMIA-likely secondary to acute kidney injury, improved with use of Kayexalate -IV fluids as above -Recheck potassium later today and again in a.m. TYPE 2 DIABETES MELLITUS-glucose levels significantly elevated after surgery -4 times a day glucometers -Increase long-acting insulins to 30 units every 12 hours -Continue high-dose sliding scale NovoLog
[2017-05-02] MEDS: MVI, Adult with Vitamin K 10 ML, Thiamine 200 MG, Chromium/Copper/Mang/Selen/Zn 1 ML in... IV SCH ×4 (16:55)
[2017-05-02] MEDS: Pantoprazole 40 MG Vial IVPUSH SCH (17:30)
[2017-05-02] MEDS: Enoxaparin 120 MG/0.8 ML Syringe SUBCUT SCH (22:04)
[2017-05-03] MEDS: Lactated Ringers 1,000 ML IV SCH ×3 (00:33→12:36)
[2017-05-03] MEDS: Acetaminophen Soln 650 MG/20.3 ML UD Cup PO SCH ×3 (05:21→18:27)
[2017-05-03] MEDS: Insulin Aspart 100 Units/ML 3 ML Pen SUBCUT SCH ×4 (07:31→21:59)
[2017-05-03] MEDS: Gabapentin 250 MG/5 ML Solution ML 470 ML Bottle PO SCH ×3 (09:56→21:56)
[2017-05-03] MEDS: Insulin Detemir 100 Units/ML 3 ML Pen SUBCUT SCH ×2 (10:02→21:58)
[2017-05-03] MEDS: amLODIPine 10 MG Tab PO SCH (10:03)
[2017-05-03] MEDS: Metoprolol Succinate 50 MG Tab.ER PO SCH ×2 (10:03→21:57)
[2017-05-03] MEDS: Sodium Bicarbonate 650 MG Tab PO SCH ×2 (10:03→21:57)
[2017-05-03] MEDS: Cetirizine 10 MG Tab PO SCH (10:04)
--- NOTE | 2017-05-03 10:11 | PN ---
DATE OF SERVICE: 05/03/2017 SUBJECTIVE: Latanya is postop day #3. Blood sugar this morning was 118. Hemoglobin 8.6. INR is 1.31. BNP was 497. Magnesium was 1.8. Creatinine 4.5 with estimated creatinine clearance drug dosing of 17 and GFR is 11. Latanya states her pain is controlled. She has been up, ambulating. Oral intake was 1340. Output was 3875 via Mullen catheter. The patient did have 1 BM today. IV continues to run at 175 mL per hour. MAGNO drain put out 310 of a pink tinged serosanguineous drainage. REVIEW OF SYSTEMS: Remainder of review of systems negative for any pertinent positives and negatives. OBJECTIVE: GENERAL: Latanya Cotto is a pleasant 46-year-old female. VITAL SIGNS: TPR is 99.5, 69, 16. Blood pressure 150/58. HEENT: Negative. NECK: Supple. HEART: Regular rate and rhythm. LUNGS: Clear. ABDOMEN: MAGNO drain intact. There is some leakage around the MAGNO drain site, which is serosanguineous. Sutures intact. Abdominal binder has been on. EXTREMITIES: Reveal trace peripheral edema. ASSESSMENT: 1. Diagnostic laparoscopy with laparoscopic sleeve gastrectomy and liver biopsy, for morbid obesity, hepatomegaly, extreme immobility of abdominal wall and small bowel mesentery. Date of surgery, 04/30/2017. 2. [id number] kidney injury. 3. Hyperkalemia. 4. Diabetes type 2. 5. Chronic long-term anticoagulation therapy. PLAN: 1. Decrease Levemir to 25 units b.i.d. Check CBC, CMP, and mag, phos in the a.m. 2. Coumadin 7.5 mg. 3. Continue Mullen catheter for accurate output due to the patient's kidney disease. 4. We will evaluate p.r.n. or in the a.m. Yissel Steinberg PA-C /[id number]
--- NOTE | 2017-05-03 12:23 | PCM.PN ---
- General Info Date of Service: 05/03/17 Subjective Update: This patient has been stable over the past 24 hours, vital signs are been good and she has remained afebrile. Creatinine remains elevated despite very good urine output. She feels well with increased energy, denies shortness of breath significant abdominal pain and nausea or vomiting. - Patient Data Vitals - Most Recent: Last Vital Signs Temp 99.1 F 05/03/17 10:46 Pulse 71 05/03/17 10:46 Resp 18 05/03/17 10:46 BP 181/74 H 05/03/17 10:46 Pulse Ox 96 05/03/17 10:46 Weight - Most Recent: 436 lb 6.4 oz I&O - Last 24 Hours: Intake & Output 05/02/17 05/03/17 05/03/17 22:59 06:59 14:59 Intake Total 2435 833 840 Output Total 1835 2265 980 Balance 600 -1432 -140 Lab Results Last 24 Hours: Laboratory Results - last 24 hr 05/02/17 05/03/17 05/03/17 Range/Units 17:15 03:30 03:30 WBC 8.5 (4.5-11.0) K/uL RBC 2.76 L (3.30-5.50) M/uL Hgb 8.6 L (12.0-15.0) g/dL Hct 27.4 L (36.0-48.0) % MCV 99 H (80-98) fL MCH 31 (27-31) pg MCHC 31 L (32-36) % Plt Count 148 L (150-400) K/uL PT 14.2 H (9.5-12.0) sec INR 1.31 H (0.80-1.20) Sodium 141 (140-148) mmol/L Potassium 5.3 H (3.6-5.2) mmol/L Chloride 109 H (100-108) mmol/L Carbon Dioxide 22 (21-32) mmol/L Anion Gap 15.3 H (5.0-14.0) mmol/L BUN 58 H (7-18) mg/dL Creatinine 4.4 H* (0.6-1.0) mg/dL Est Cr Clr Drug Dosing 17.46 mL/min Estimated GFR (MDRD) 11 L (>60) Glucose 180 H (74-106) mg/dL Calcium 7.8 L (8.5-10.1) mg/dL Phosphorus (2.5-4.9) mg/dL Magnesium (1.8-2.4) mg/dL Total Bilirubin (0.2-1.0) mg/dL AST (15-37) U/L ALT (12-78) U/L Alkaline Phosphatase (46-116) U/L NT-Pro-B Natriuret Pep (5-125) pg/mL Total Protein (6.4-8.2) g/dL Albumin (3.4-5.0) g/dL Globulin (2.3-3.5) g/dL Albumin/Globulin Ratio (1.2-2.2) 05/03/17 Range/Units 03:30 WBC (4.5-11.0) K/uL RBC (3.30-5.50) M/uL Hgb (12.0-15.0) g/dL Hct (36.0-48.0) % MCV (80-98) fL MCH (27-31) pg MCHC (32-36) % Plt Count (150-400) K/uL PT (9.5-12.0) sec INR (0.80-1.20) Sodium 146 (140-148) mmol/L Potassium 4.4 (3.6-5.2) mmol/L Chloride 113 H (100-108) mmol/L Carbon Dioxide 23 (21-32) mmol/L Anion Gap 14.4 H (5.0-14.0) mmol/L BUN 55 H (7-18) mg/dL Creatinine 4.5 H* (0.6-1.0) mg/dL Est Cr Clr Drug Dosing 17.07 mL/min Estimated GFR (MDRD) 11 L (>60) Glucose 118 H (74-106) mg/dL Calcium 7.6 L (8.5-10.1) mg/dL Phosphorus 4.3 (2.5-4.9) mg/dL Magnesium 1.8 (1.8-2.4) mg/dL Total Bilirubin 0.3 (0.2-1.0) mg/dL AST 47 H (15-37) U/L ALT 97 H (12-78) U/L Alkaline Phosphatase 36 L (46-116) U/L NT-Pro-B Natriuret Pep 497 H (5-125) pg/mL Total Protein 5.0 L (6.4-8.2) g/dL Albumin 2.2 L (3.4-5.0) g/dL Globulin 2.8 (2.3-3.5) g/dL Albumin/Globulin Ratio 0.8 L (1.2-2.2) Med Orders - Current: Current Medications Acetaminophen (Tylenol) 650 mg PO Q6H [facility] Last Admin: 05/03/17 05:21 Dose: 650 mg Amlodipine Besylate (Norvasc) 10 mg PO DAILY [facility] Last Admin: 05/03/17 10:03 Dose: 10 mg Betamethasone/Clotrimazole (Lotrisone) 0 gm TOP BID PRN PRN Reason: Rash Cetirizine HCl (Zyrtec) 10 mg PO DAILY [facility] Last Admin: 05/03/17 10:04 Dose: 10 mg Dextrose/Water (Dextrose 50% In Water) 50 ml IVPUSH ONETIME PRN PRN Reason: ACCUCHECK LESS THAN 70 Diphenhydramine HCl (Benadryl) 25 - 50 mg IVPUSH Q4H PRN PRN Reason: ITCHING Enoxaparin Sodium (Lovenox) 120 mg SUBCUT BEDTIME [facility] Last Admin: 05/02/17 22:04 Dose: 120 mg Gabapentin (Neurontin) 300 mg PO TID [facility] Last Admin: 05/03/17 09:56 Dose: 300 mg Glucagon (Glucagen) 1 mg IM ONETIME PRN PRN Reason: ACCUCHECK LESS THAN 70 Hydroxyzine HCl (Vistaril) 75 - 100 mg IM Q4H PRN PRN Reason: PAIN Last Admin: 04/30/17 22:45 Dose: 100 mg Lactated Ringer's (Ringers, Lactated) 1,000 mls @ 175 mls/hr IV ASDIRECTED [facility] Last Admin: 05/03/17 06:33 Dose: 175 mls/hr Multivitamins/Minerals 10 ml/Thiamine HCl 200 mg/ Chromium/Copper/Manganese/ Seleni/Zn 1 ml/ Lactated Ringer's 1,013 mls @ 175 mls/hr IV DAILY@1600 [facility] Last Admin: 05/02/17 16:55 Dose: 175 mls/hr Insulin Aspart (Novolog) 0 unit SUBCUT QIDACANDBED [facility] PRN Reason: Protocol Last Admin: 05/03/17 07:31 Dose: Not Given Insulin Detemir (Levemir) 25 unit SUBCUT BID [facility] Last Admin: 05/03/17 10:02 Dose: 25 units Labetalol HCl (Normodyne) 5 - 15 mg IVPUSH Q1H PRN PRN Reason: SBP over 160 OR DBP over 95 Lansoprazole (Prevacid Solutab) 30 mg PO ACBREAKFAST [facility] Levothyroxine Sodium 112 mcg/ (Levothyroxine Sodium 25 mcg) 137 mcg PO ACBREAKFAST [facility] Last Admin: 05/03/17 07:35 Dose: 137 mcg Metoclopramide HCl (Reglan) 10 mg IVPUSH Q6H PRN PRN Reason: NAUSEA NOT CONTROL BY ZOFRAN Metoprolol Succinate (Toprol Xl) 50 mg PO BID [facility] Last Admin: 05/03/17 10:03 Dose: 50 mg Ondansetron HCl (Zofran) 4 mg IVPUSH Q4H PRN PRN Reason: Nausea/Vomiting Sodium Bicarbonate (Sodium Bicarbonate) 650 mg PO BID [facility] Last Admin: 05/03/17 10:03 Dose: 650 mg Warfarin Sodium (Coumadin) 7.5 mg PO ONETIME ONE Stop: 05/03/17 13:01 Discontinued Medications Acetaminophen (Tylenol Extra Strength) 1,000 mg PO ONETIME ONE Stop: 04/30/17 09:46 Last Admin: 04/30/17 10:17 Dose: 1,000 mg Cefoxitin Sodium (Mefoxin) Confirm Administered Dose 2 gm .ROUTE .STK-MED ONE Stop: 04/30/17 11:47 Last Admin: 04/30/17 13:53 Dose: 2 gm Celecoxib (Celebrex) 200 mg PO ONETIME ONE Stop: 04/30/17 09:46 Last Admin: 04/30/17 10:17 Dose: 200 mg Celecoxib (Celebrex) 200 mg PO DAILY@0800 [facility] Last Admin: 05/01/17 08:03 Dose: 200 mg Ropivacaine 60 ml/Dexamethasone 8 mg/Epinephrine HCl 0.4 mg/ Sodium Chloride 17.6 ml 0 ml NERVRT ASDIRECTED [facility] Last Admin: 04/30/17 13:30 Dose: 80 syringe Cyanocobalamin (Vitamin B12) 1,000 mcg IM ONETIME ONE Stop: 05/02/17 09:01 Last Admin: 05/02/17 09:07 Dose: 1,000 mcg Dexamethasone (Dexamethasone) Confirm Administered Dose 4 mg .ROUTE .STK-MED ONE Stop: 04/30/17 11:01 Fentanyl (Sublimaze) Confirm Administered Dose 250 mcg .ROUTE .STK-MED ONE Stop: 04/30/17 11:02 Gabapentin (Neurontin) 300 mg PO ONETIME ONE Stop: 04/30/17 09:46 Last Admin: 04/30/17 10:17 Dose: 300 mg Glycopyrrolate (Robinul) Confirm Administered Dose 1 mg .ROUTE .STK-MED ONE Stop: 04/30/17 11:01 Heparin Sodium (Porcine) (Heparin Sodium) 5,000 units SUBCUT Q8H [facility] Last Admin: 05/01/17 11:58 Dose: 5,000 units Hydroxyzine HCl (Vistaril) 100 mg IM ONETIME ONE Stop: 04/30/17 16:46 Last Admin: 04/30/17 16:33 Dose: 100 mg Hydroxyzine HCl (Vistaril) 75 - 100 mg IM Q4H PRN PRN Reason: pain Hydroxyzine HCl (Vistaril) 75 mg IM ONETIME ONE Stop: 04/30/17 17:42 Last Admin: 05/01/17 06:33 Dose: Not Given Hydroxyzine HCl (Vistaril) 50 mg IM ONETIME ONE Stop: 04/30/17 17:47 Last Admin: 04/30/17 17:59 Dose: 50 mg Dextrose/Lactated Ringer's (Dextrose 5%-Lactated Ringers) 1,000 mls @ 100 mls/ hr IV ASDIRECTED [facility] Last Admin: 04/30/17 11:23 Dose: 100 mls/hr Cefoxitin Sodium 2 gm/ Sodium (Chloride) 50 mls @ 100 mls/hr IV ONETIME ONE Stop: 04/30/17 11:44 Last Admin: 04/30/17 17:36 Dose: Not Given Lidocaine HCl/Dextrose (Lidocaine 2 Gm/D5w 500 Ml) 2 gm in 500 mls @ 30 mls/hr IV .[id number] [facility] PRN Reason: 2 MG/MIN Stop: 05/01/17 16:00 Last Admin: 05/01/17 05:22 Dose: 2 mg/min, 30 mls/hr Ketamine HCl 100 mg/ Sodium (Chloride) 100 mls @ 21 mls/hr IV ONETIME ONE PRN Reason: 5 MCG/KG/MIN Stop: 04/30/17 15:45 Last Admin: 04/30/17 17:34 Dose: Not Given Lactated Ringer's (Ringers, Lactated) Confirm Administered Dose 1,000 mls @ as directed .ROUTE .STK-MED ONE Stop: 04/30/17 11:01 Insulin Human Regular 100 unit (/ Sodium Chloride) 100 mls @ 0 mls/hr SUBCUT TITRATE [facility] PRN Reason: Protocol Dextrose/Lactated Ringer's (Dextrose 5%-Lactated Ringers) 1,000 mls @ 175 mls/ hr IV ASDIRECTED [facility] Last Admin: 05/01/17 02:26 Dose: 175 mls/hr Multivitamins/Minerals 10 ml/Thiamine HCl 200 mg/ Chromium/Copper/Manganese/ Seleni/Zn 1 ml/ Dextrose/Lactated Ringer's 1,013 mls @ 175 mls/hr IV DAILY@ 1600 [facility] Last Admin: 04/30/17 20:37 Dose: 175 mls/hr Cefoxitin Sodium 2 gm/ Sodium (Chloride) 50 mls @ 100 mls/hr IV Q6H [facility] Stop: 05/01/17 06:29 Last Admin: 05/01/17 05:12 Dose: 100 mls/hr Insulin Aspart (Novolog) 0 unit SUBCUT Q6H PRN; Protocol PRN Reason: PER CORRECTIONAL DOSING Last Admin: 04/30/17 16:45 Dose: 7 unit Insulin Aspart (Novolog) 0 unit SUBCUT ONETIME STA Stop: 04/30/17 22:30 Last Admin: 04/30/17 22:49 Dose: 20 unit Insulin Aspart (Novolog) 0 unit SUBCUT ONETIME STA Stop: 05/01/17 04:32 Last Admin: 05/01/17 05:11 Dose: 30 unit Insulin Aspart (Novolog) 10 unit SUBCUT ONETIME ONE Stop: 05/01/17 10:16 Last Admin: 05/01/17 10:18 Dose: 10 units Insulin Aspart (Novolog) 14 unit SUBCUT ONETIME ONE Stop: 05/01/17 17:01 Last Admin: 05/01/17 17:02 Dose: 14 units Insulin Detemir (Levemir) 15 unit SUBCUT BEDTIME [facility] Last Admin: 04/30/17 22:29 Dose: Not Given Insulin Detemir (Levemir) 0 unit SUBCUT ONETIME STA Stop: 04/30/17 22:30 Last Admin: 04/30/17 22:48 Dose: 25 unit Insulin Detemir (Levemir) 0 unit SUBCUT ONETIME STA Stop: 05/01/17 04:32 Last Admin: 05/01/17 05:09 Dose: 25 unit Insulin Detemir (Levemir) 20 unit SUBCUT BEDTIME [facility] Insulin Detemir (Levemir) 30 unit SUBCUT QPM [facility] Last Admin: 05/01/17 22:05 Dose: 30 units Insulin Detemir (Levemir) 0 unit SUBCUT DAILY [facility] Stop: 05/02/17 09:01 Last Admin: 05/02/17 08:00 Dose: 30 units Insulin Detemir (Levemir) 30 unit SUBCUT BID [facility] Last Admin: 05/02/17 22:05 Dose: 30 units Iohexol (Omnipaque-300) 50 ml PO .ASDIRECTED STA Stop: 05/01/17 04:01 Last Admin: 05/01/17 04:32 Dose: 50 ml Ketamine HCl (Ketalar) 35 mg IV ONETIME ONE Stop: 04/30/17 11:01 Last Admin: 04/30/17 17:34 Dose: Not Given Lidocaine HCl (Xylocaine 2%) 190 mg IVPUSH ONETIME ONE Stop: 04/30/17 11:01 Last Admin: 04/30/17 17:36 Dose: Not Given Meperidine HCl (Demerol) 100 mg IM ONETIME ONE Stop: 04/30/17 17:41 Last Admin: 05/01/17 06:32 Dose: Not Given Meperidine HCl (Demerol) 100 mg IM ONETIME ONE Stop: 04/30/17 17:41 Last Admin: 04/30/17 17:58 Dose: 100 mg Miscellaneous Information (Remove Patch) 1 ea TRDERM ONETIME ONE Stop: 05/02/17 10:01 Last Admin: 05/02/17 09:15 Dose: Not Given Neostigmine Methylsulfate (Neostigmine) Confirm Administered Dose 5 mg .ROUTE .STK-MED ONE Stop: 04/30/17 11:01 Scopolamine Patch (Check) 1 each TOP DAILY [facility] Stop: 05/02/17 17:01 Last Admin: 05/02/17 08:08 Dose: Not Given Ondansetron HCl (Zofran) Confirm Administered Dose 4 mg .ROUTE .STK-MED ONE Stop: 04/30/17 11:01 Ondansetron HCl (Zofran) 4 mg IVPUSH ONETIME ONE Stop: 04/30/17 15:53 Last Admin: 04/30/17 17:08 Dose: Not Given Pantoprazole Sodium (Protonix Iv) 40 mg IVPUSH Q24H [facility] Last Admin: 05/02/17 17:30 Dose: 40 mg Propofol (Diprivan 20 Ml) Confirm Administered Dose 200 mg .ROUTE .STK-MED ONE Stop: 04/30/17 11:01 Rocuronium [place] (Zemuron) Confirm Administered Dose 100 mg .ROUTE .STK-MED ONE Stop: 04/30/17 11:01 Scopolamine (Transderm-Scop) 1.5 mg TOP Q72H [facility] Stop: 05/02/17 09:46 Last Admin: 04/30/17 10:17 Dose: 1.5 mg Sodium Chloride (Normal Saline) 500 ml IRR .STK-MED ONE Stop: 04/30/17 13:55 Last Admin: 04/30/17 13:54 Dose: 500 ml Sodium Polystyrene Sulfonate (Kayexalate) 30 gm PO ONETIME ONE Stop: 05/01/17 18:28 Last Admin: 05/01/17 19:00 Dose: 30 gm Sodium Polystyrene Sulfonate (Kayexalate) 30 gm PO ONETIME ONE Stop: 05/02/17 10:01 Last Admin: 05/02/17 10:10 Dose: 30 gm Succinylcholine Chloride (Quelicin) Confirm Administered Dose 200 mg .ROUTE .STK -MED ONE Stop: 04/30/17 11:01 Warfarin Sodium (Coumadin) 7.5 mg PO ONETIME ONE Stop: 05/01/17 13:01 Last Admin: 05/01/17 13:14 Dose: 7.5 mg Warfarin Sodium (Coumadin) 7.5 mg PO ONETIME ONE Stop: 05/02/17 13:01 Last Admin: 05/02/17 13:17 Dose: 7.5 mg - Exam Quality Assessment: DVT Prophylaxis General: Alert, Oriented, Cooperative, No Acute Distress Lungs: Clear to Auscultation, Normal Respiratory Effort Cardiovascular: Regular Rate, Regular Rhythm, No Murmurs GI/Abdominal Exam: Normal Bowel Sounds, Soft, No Organomegaly, Tender. No: Distended, Guarding, Rigid, Rebound Extremities: Non-Tender, No Pedal Edema Skin: Warm, Dry - Problem List Review Problem List Initiated/Reviewed/Updated: Yes - Plan Plan:: ASSESSMENT AND RECOMMENDATIONS ACUTE ON CHRONIC KIDNEY INJURY-at baseline has chronic kidney disease stage III , admission creatinine 2.4, seems to have peaked at 4.6, now today is 4.6. Urine output has been excellent over the past 24 hours -Saline lock IV -Closely monitor urine output -Recheck renal function again in a.m. HYPERKALEMIA-likely secondary to acute kidney injury, improved with use of Kayexalate -IV fluids as above -Recheck potassium again in a.m. TYPE 2 DIABETES MELLITUS-glucose levels improved with current regimen -4 times a day glucometers -Increase long-acting insulins to 30 units every 12 hours -Continue high-dose sliding scale NovoLog
[2017-05-03] MEDS: Lansoprazole 30 MG Orally Disintegrating Tab.CR PO SCH (12:35)
[2017-05-03] MEDS ORDERED: Warfarin 2.5 MG Tab PO ONE (13:00)
[2017-05-03] MEDS: MVI, Adult with Vitamin K 10 ML, Thiamine 200 MG, Chromium/Copper/Mang/Selen/Zn 1 ML in... IV SCH ×8 (14:00→17:38)
[2017-05-03] MEDS: Enoxaparin 120 MG/0.8 ML Syringe SUBCUT SCH (21:58)
[2017-05-04] MEDS: Acetaminophen Soln 650 MG/20.3 ML UD Cup PO SCH ×4 (01:01→17:30)
[2017-05-04] MEDS: Insulin Detemir 100 Units/ML 3 ML Pen SUBCUT SCH ×3 (07:35→21:48)
[2017-05-04] MEDS: Lansoprazole 30 MG Orally Disintegrating Tab.CR PO SCH (07:37)
[2017-05-04] MEDS: Insulin Aspart 100 Units/ML 3 ML Pen SUBCUT SCH ×4 (07:37→21:51)
[2017-05-04] MEDS: Gabapentin 250 MG/5 ML Solution ML 470 ML Bottle PO SCH ×2 (09:02→21:14)
[2017-05-04] MEDS: amLODIPine 10 MG Tab PO SCH (09:02)
[2017-05-04] MEDS: Cetirizine 10 MG Tab PO SCH (09:03)
[2017-05-04] MEDS: Metoprolol Succinate 50 MG Tab.ER PO SCH ×2 (09:03→21:14)
[2017-05-04] MEDS: Sodium Bicarbonate 650 MG Tab PO SCH ×2 (09:03→21:14)
--- NOTE | 2017-05-04 09:19 | PN ---
DATE OF SERVICE: 05/04/2017 SUBJECTIVE: Latanya is a pleasant 46-year-old female. She has ambulated twice. Yesterday, she ran a low grade temperature of 99.9 and currently is 99.4. Oral intake 1900. Output via Mullen catheter was 5225. She has had 100% of breakfast, lunch, and dinner. REVIEW OF SYSTEMS: Remainder of review of systems negative for any pertinent positives and negatives, including pain has been well controlled. OBJECTIVE: GENERAL: Latanya is a 46-year-old female. VITAL SIGNS: Height is 5 feet 10 inches, weight is 436 pounds. TPR 99.4, 71, 17. Blood pressure 157/70. HEENT: Negative. NECK: Supple. HEART: Regular rate and rhythm. LUNGS: Clear. ABDOMEN: Abdominal binder is temporarily off, otherwise she has been wearing it, and sutures look good. MAGNO drain intact draining a light pink serosanguineous drainage, 250 mL. EXTREMITIES: Revealed trace peripheral edema. LABORATORY DATA: This morning: Blood sugar 104, potassium is 4.4, creatinine 4.2, BNP is 376, and hemoglobin is stable at 8.9. ASSESSMENT: 1. Diagnostic laparoscopy with laparoscopic sleeve gastrectomy and liver biopsy, for morbid obesity, extreme immobility of abdominal wall and small bowel mesentery. Date of surgery, 04/30/2017. 2. [id number] kidney injury. 3. Hyperkalemia. 4. Diabetes type 2. 5. Chronic long-term anticoagulation therapy. PLAN: 1. Consult Case Management for home health care. 2. Remove MAGNO drain. 3. Remove Mullen catheter. 4. Coumadin 7.5 mg p.o. one time today, ask in the a.m. 5. We will evaluate p.r.n. or in the a.m. Yissel Steinberg PA-C /[id number]
[2017-05-04] MEDS ORDERED: Warfarin 2.5 MG Tab PO ONE (13:00)
--- NOTE | 2017-05-04 17:10 | PCM.PN ---
- General Info Date of Service: 05/04/17 Subjective Update: Ms. Cotto has been stable over the past 24 hours, urine output has been good, creatinine improved modestly since yesterday. She is tolerating her current diet and has been ambulating in the hallways without significant symptoms. - Review of Systems General: Denies: Fever, Weakness, Chills Pulmonary: Reports: No Symptoms Cardiovascular: Reports: No Symptoms Gastrointestinal: Reports: Abdominal Pain, Flatus. Denies: Constipation, Diarrhea, Nausea, Vomiting - Patient Data Vitals - Most Recent: Last Vital Signs Temp 98.7 F 05/04/17 14:41 Pulse 77 05/04/17 14:41 Resp 17 05/04/17 14:41 BP 154/64 H 05/04/17 14:41 Pulse Ox 97 05/04/17 14:41 Weight - Most Recent: 436 lb 6.4 oz I&O - Last 24 Hours: Intake & Output 05/04/17 05/04/17 05/04/17 06:59 14:59 22:59 Intake Total 1400 Output Total 1175 2000 450 Balance -1175 -600 -450 Lab Results Last 24 Hours: Laboratory Results - last 24 hr 05/04/17 05/04/17 05/04/17 Range/Units 04:32 04:32 04:32 WBC 7.7 (4.5-11.0) K/uL RBC 2.91 L (3.30-5.50) M/uL Hgb 8.9 L (12.0-15.0) g/dL Hct 28.7 L (36.0-48.0) % MCV 99 H (80-98) fL MCH 31 (27-31) pg MCHC 31 L (32-36) % Plt Count 139 L (150-400) K/uL PT 14.1 H (9.5-12.0) sec INR 1.30 H (0.80-1.20) Sodium 147 (140-148) mmol/L Potassium 4.4 (3.6-5.2) mmol/L Chloride 115 H (100-108) mmol/L Carbon Dioxide 23 (21-32) mmol/L Anion Gap 13.4 (5.0-14.0) mmol/L BUN 49 H (7-18) mg/dL Creatinine 4.2 H* (0.6-1.0) mg/dL Est Cr Clr Drug Dosing 18.29 mL/min Estimated GFR (MDRD) 11 L (>60) Glucose 104 (74-106) mg/dL Calcium 7.7 L (8.5-10.1) mg/dL Phosphorus 4.3 (2.5-4.9) mg/dL Magnesium 1.7 L (1.8-2.4) mg/dL Total Bilirubin 0.3 (0.2-1.0) mg/dL AST 27 (15-37) U/L ALT 73 (12-78) U/L Alkaline Phosphatase 36 L (46-116) U/L NT-Pro-B Natriuret Pep 376 H (5-125) pg/mL Total Protein 5.1 L (6.4-8.2) g/dL Albumin 2.3 L (3.4-5.0) g/dL Globulin 2.8 (2.3-3.5) g/dL Albumin/Globulin Ratio 0.8 L (1.2-2.2) Med Orders - Current: Current Medications Acetaminophen (Tylenol) 650 mg PO Q6H [facility] Last Admin: 05/04/17 13:03 Dose: 650 mg Amlodipine Besylate (Norvasc) 10 mg PO DAILY [facility] Last Admin: 05/04/17 09:02 Dose: 10 mg Betamethasone/Clotrimazole (Lotrisone) 0 gm TOP BID PRN PRN Reason: Rash Cetirizine HCl (Zyrtec) 10 mg PO DAILY [facility] Last Admin: 05/04/17 09:03 Dose: 10 mg Diphenhydramine HCl (Benadryl) 25 - 50 mg IVPUSH Q4H PRN PRN Reason: ITCHING Enoxaparin Sodium (Lovenox) 120 mg SUBCUT BEDTIME [facility] Last Admin: 05/03/17 21:58 Dose: 120 mg Gabapentin (Neurontin) 300 mg PO BID [facility] Glucagon (Glucagen) 1 mg IM ONETIME PRN PRN Reason: ACCUCHECK LESS THAN 70 Hydroxyzine HCl (Vistaril) 75 - 100 mg IM Q4H PRN PRN Reason: PAIN Last Admin: 04/30/17 22:45 Dose: 100 mg Insulin Aspart (Novolog) 0 unit SUBCUT QIDACANDBED [facility] PRN Reason: Protocol Last Admin: 05/04/17 16:19 Dose: Not Given Insulin Detemir (Levemir) 25 unit SUBCUT BID [facility] Last Admin: 05/04/17 08:04 Dose: Not Given Labetalol HCl (Normodyne) 5 - 15 mg IVPUSH Q1H PRN PRN Reason: SBP over 160 OR DBP over 95 Lansoprazole (Prevacid Solutab) 30 mg PO ACBREAKFAST [facility] Last Admin: 05/04/17 07:37 Dose: 30 mg Levothyroxine Sodium 112 mcg/ (Levothyroxine Sodium 25 mcg) 137 mcg PO ACBREAKFAST [facility] Last Admin: 05/04/17 07:37 Dose: 137 mcg Metoprolol Succinate (Toprol Xl) 50 mg PO BID [facility] Last Admin: 05/04/17 09:03 Dose: 50 mg Ondansetron HCl (Zofran) 4 mg IVPUSH Q4H PRN PRN Reason: Nausea/Vomiting Sodium Bicarbonate (Sodium Bicarbonate) 650 mg PO BID [facility] Last Admin: 05/04/17 09:03 Dose: 650 mg Discontinued Medications Acetaminophen (Tylenol Extra Strength) 1,000 mg PO ONETIME ONE Stop: 04/30/17 09:46 Last Admin: 04/30/17 10:17 Dose: 1,000 mg Cefoxitin Sodium (Mefoxin) Confirm Administered Dose 2 gm .ROUTE .STK-MED ONE Stop: 04/30/17 11:47 Last Admin: 04/30/17 13:53 Dose: 2 gm Celecoxib (Celebrex) 200 mg PO ONETIME ONE Stop: 04/30/17 09:46 Last Admin: 04/30/17 10:17 Dose: 200 mg Celecoxib (Celebrex) 200 mg PO DAILY@0800 [facility] Last Admin: 05/01/17 08:03 Dose: 200 mg Ropivacaine 60 ml/Dexamethasone 8 mg/Epinephrine HCl 0.4 mg/ Sodium Chloride 17.6 ml 0 ml NERVRT ASDIRECTED [facility] Last Admin: 04/30/17 13:30 Dose: 80 syringe Cyanocobalamin (Vitamin B12) 1,000 mcg IM ONETIME ONE Stop: 05/02/17 09:01 Last Admin: 05/02/17 09:07 Dose: 1,000 mcg Dexamethasone (Dexamethasone) Confirm Administered Dose 4 mg .ROUTE .STK-MED ONE Stop: 04/30/17 11:01 Dextrose/Water (Dextrose 50% In Water) 50 ml IVPUSH ONETIME PRN PRN Reason: ACCUCHECK LESS THAN 70 Fentanyl (Sublimaze) Confirm Administered Dose 250 mcg .ROUTE .STK-MED ONE Stop: 04/30/17 11:02 Gabapentin (Neurontin) 300 mg PO ONETIME ONE Stop: 04/30/17 09:46 Last Admin: 04/30/17 10:17 Dose: 300 mg Gabapentin (Neurontin) 300 mg PO TID [facility] Last Admin: 05/04/17 09:02 Dose: 300 mg Glycopyrrolate (Robinul) Confirm Administered Dose 1 mg .ROUTE .STK-MED ONE Stop: 04/30/17 11:01 Heparin Sodium (Porcine) (Heparin Sodium) 5,000 units SUBCUT Q8H [facility] Last Admin: 05/01/17 11:58 Dose: 5,000 units Hydroxyzine HCl (Vistaril) 100 mg IM ONETIME ONE Stop: 04/30/17 16:46 Last Admin: 04/30/17 16:33 Dose: 100 mg Hydroxyzine HCl (Vistaril) 75 - 100 mg IM Q4H PRN PRN Reason: pain Hydroxyzine HCl (Vistaril) 75 mg IM ONETIME ONE Stop: 04/30/17 17:42 Last Admin: 05/01/17 06:33 Dose: Not Given Hydroxyzine HCl (Vistaril) 50 mg IM ONETIME ONE Stop: 04/30/17 17:47 Last Admin: 04/30/17 17:59 Dose: 50 mg Dextrose/Lactated Ringer's (Dextrose 5%-Lactated Ringers) 1,000 mls @ 100 mls/ hr IV ASDIRECTED [facility] Last Admin: 04/30/17 11:23 Dose: 100 mls/hr Cefoxitin Sodium 2 gm/ Sodium (Chloride) 50 mls @ 100 mls/hr IV ONETIME ONE Stop: 04/30/17 11:44 Last Admin: 04/30/17 17:36 Dose: Not Given Lidocaine HCl/Dextrose (Lidocaine 2 Gm/D5w 500 Ml) 2 gm in 500 mls @ 30 mls/hr IV .[id number] [facility] PRN Reason: 2 MG/MIN Stop: 05/01/17 16:00 Last Admin: 05/01/17 05:22 Dose: 2 mg/min, 30 mls/hr Ketamine HCl 100 mg/ Sodium (Chloride) 100 mls @ 21 mls/hr IV ONETIME ONE PRN Reason: 5 MCG/KG/MIN Stop: 04/30/17 15:45 Last Admin: 04/30/17 17:34 Dose: Not Given Lactated Ringer's (Ringers, Lactated) Confirm Administered Dose 1,000 mls @ as directed .ROUTE .STK-MED ONE Stop: 04/30/17 11:01 Insulin Human Regular 100 unit (/ Sodium Chloride) 100 mls @ 0 mls/hr SUBCUT TITRATE [facility] PRN Reason: Protocol Dextrose/Lactated Ringer's (Dextrose 5%-Lactated Ringers) 1,000 mls @ 175 mls/ hr IV ASDIRECTED [facility] Last Admin: 05/01/17 02:26 Dose: 175 mls/hr Multivitamins/Minerals 10 ml/Thiamine HCl 200 mg/ Chromium/Copper/Manganese/ Seleni/Zn 1 ml/ Dextrose/Lactated Ringer's 1,013 mls @ 175 mls/hr IV DAILY@ 1600 [facility] Last Admin: 04/30/17 20:37 Dose: 175 mls/hr Cefoxitin Sodium 2 gm/ Sodium (Chloride) 50 mls @ 100 mls/hr IV Q6H [facility] Stop: 05/01/17 06:29 Last Admin: 05/01/17 05:12 Dose: 100 mls/hr Lactated Ringer's (Ringers, Lactated) 1,000 mls @ 175 mls/hr IV ASDIRECTED [facility] Last Admin: 05/03/17 12:36 Dose: 175 mls/hr Multivitamins/Minerals 10 ml/Thiamine HCl 200 mg/ Chromium/Copper/Manganese/ Seleni/Zn 1 ml/ Lactated Ringer's 1,013 mls @ 175 mls/hr IV DAILY@1600 [facility] Last Admin: 05/03/17 17:38 Dose: Not Given Insulin Aspart (Novolog) 0 unit SUBCUT Q6H PRN; Protocol PRN Reason: PER CORRECTIONAL DOSING Last Admin: 04/30/17 16:45 Dose: 7 unit Insulin Aspart (Novolog) 0 unit SUBCUT ONETIME STA Stop: 04/30/17 22:30 Last Admin: 04/30/17 22:49 Dose: 20 unit Insulin Aspart (Novolog) 0 unit SUBCUT ONETIME [facility] Stop: 05/01/17 04:32 Last Admin: 05/01/17 05:11 Dose: 30 unit Insulin Aspart (Novolog) 10 unit SUBCUT ONETIME ONE Stop: 05/01/17 10:16 Last Admin: 05/01/17 10:18 Dose: 10 units Insulin Aspart (Novolog) 14 unit SUBCUT ONETIME ONE Stop: 05/01/17 17:01 Last Admin: 05/01/17 17:02 Dose: 14 units Insulin Detemir (Levemir) 15 unit SUBCUT BEDTIME [facility] Last Admin: 04/30/17 22:29 Dose: Not Given Insulin Detemir (Levemir) 0 unit SUBCUT ONETIME [facility] Stop: 04/30/17 22:30 Last Admin: 04/30/17 22:48 Dose: 25 unit Insulin Detemir (Levemir) 0 unit SUBCUT ONETIME STA Stop: 05/01/17 04:32 Last Admin: 05/01/17 05:09 Dose: 25 unit Insulin Detemir (Levemir) 20 unit SUBCUT BEDTIME [facility] Insulin Detemir (Levemir) 30 unit SUBCUT QPM [facility] Last Admin: 05/01/17 22:05 Dose: 30 units Insulin Detemir (Levemir) 0 unit SUBCUT DAILY [facility] Stop: 05/02/17 09:01 Last Admin: 05/02/17 08:00 Dose: 30 units Insulin Detemir (Levemir) 30 unit SUBCUT BID [facility] Last Admin: 05/02/17 22:05 Dose: 30 units Iohexol (Omnipaque-300) 50 ml PO .ASDIRECTED [facility] Stop: 05/01/17 04:01 Last Admin: 05/01/17 04:32 Dose: 50 ml Ketamine HCl (Ketalar) 35 mg IV ONETIME ONE Stop: 04/30/17 11:01 Last Admin: 04/30/17 17:34 Dose: Not Given Lidocaine HCl (Xylocaine 2%) 190 mg IVPUSH ONETIME ONE Stop: 04/30/17 11:01 Last Admin: 04/30/17 17:36 Dose: Not Given Meperidine HCl (Demerol) 100 mg IM ONETIME ONE Stop: 04/30/17 17:41 Last Admin: 05/01/17 06:32 Dose: Not Given Meperidine HCl (Demerol) 100 mg IM ONETIME ONE Stop: 04/30/17 17:41 Last Admin: 04/30/17 17:58 Dose: 100 mg Metoclopramide HCl (Reglan) 10 mg IVPUSH Q6H PRN PRN Reason: NAUSEA NOT CONTROL BY ZOFRAN Miscellaneous Information (Remove Patch) 1 ea TRDERM ONETIME ONE Stop: 05/02/17 10:01 Last Admin: 05/02/17 09:15 Dose: Not Given Neostigmine Methylsulfate (Neostigmine) Confirm Administered Dose 5 mg .ROUTE .STK-MED ONE Stop: 04/30/17 11:01 Scopolamine Patch (Check) 1 each TOP DAILY [facility] Stop: 05/02/17 17:01 Last Admin: 05/02/17 08:08 Dose: Not Given Ondansetron HCl (Zofran) Confirm Administered Dose 4 mg .ROUTE .STK-MED ONE Stop: 04/30/17 11:01 Ondansetron HCl (Zofran) 4 mg IVPUSH ONETIME ONE Stop: 04/30/17 15:53 Last Admin: 04/30/17 17:08 Dose: Not Given Pantoprazole Sodium (Protonix Iv) 40 mg IVPUSH Q24H [facility] Last Admin: 05/02/17 17:30 Dose: 40 mg Propofol (Diprivan 20 Ml) Confirm Administered Dose 200 mg .ROUTE .STK-MED ONE Stop: 04/30/17 11:01 Rocuronium Mcfarlan (Zemuron) Confirm Administered Dose 100 mg .ROUTE .STK-MED ONE Stop: 04/30/17 11:01 Scopolamine (Transderm-Scop) 1.5 mg TOP Q72H [facility] Stop: 05/02/17 09:46 Last Admin: 04/30/17 10:17 Dose: 1.5 mg Sodium Chloride (Normal Saline) 500 ml IRR .STK-MED ONE Stop: 04/30/17 13:55 Last Admin: 04/30/17 13:54 Dose: 500 ml Sodium Polystyrene Sulfonate (Kayexalate) 30 gm PO ONETIME ONE Stop: 05/01/17 18:28 Last Admin: 05/01/17 19:00 Dose: 30 gm Sodium Polystyrene Sulfonate (Kayexalate) 30 gm PO ONETIME ONE Stop: 05/02/17 10:01 Last Admin: 05/02/17 10:10 Dose: 30 gm Succinylcholine Chloride (Quelicin) Confirm Administered Dose 200 mg .ROUTE .STK -MED ONE Stop: 04/30/17 11:01 Warfarin Sodium (Coumadin) 7.5 mg PO ONETIME ONE Stop: 05/01/17 13:01 Last Admin: 05/01/17 13:14 Dose: 7.5 mg Warfarin Sodium (Coumadin) 7.5 mg PO ONETIME ONE Stop: 05/02/17 13:01 Last Admin: 05/02/17 13:17 Dose: 7.5 mg Warfarin Sodium (Coumadin) 7.5 mg PO ONETIME ONE Stop: 05/03/17 13:01 Last Admin: 05/03/17 12:35 Dose: 7.5 mg Warfarin Sodium (Coumadin) 7.5 mg PO ONETIME ONE Stop: 05/04/17 13:01 Last Admin: 05/04/17 13:04 Dose: 7.5 mg - Exam Quality Assessment: DVT Prophylaxis General: Alert, Oriented, Cooperative, No Acute Distress Lungs: Clear to Auscultation, Normal Respiratory Effort Cardiovascular: Regular Rate, Regular Rhythm, No Murmurs GI/Abdominal Exam: Soft, No Organomegaly, Tender. No: Distended, Guarding, Rigid, Rebound Extremities: Non-Tender, No Pedal Edema Skin: Warm, Dry - Problem List Review Problem List Initiated/Reviewed/Updated: Yes - My Orders Last 24 Hours: My Active Orders 05/05/17 05:00 BASIC METABOLIC PANEL,BMP [CHEM] Timed - Plan Plan:: ASSESSMENT AND RECOMMENDATIONS ACUTE ON CHRONIC KIDNEY INJURY-at baseline has chronic kidney disease stage III , admission creatinine 2.4, creatinine today improved to 4.2. Continues to have very good urine output. -Saline lock IV -Closely monitor urine output -Recheck renal function again in a.m. HYPERKALEMIA-Resolved -Recheck potassium again in a.m. TYPE 2 DIABETES MELLITUS-glucose levels improved with current regimen -4 times a day glucometers -Increase long-acting insulins to 30 units every 12 hours
[2017-05-04] MEDS: Enoxaparin 120 MG/0.8 ML Syringe SUBCUT SCH (21:13)
[2017-05-05] MEDS: Acetaminophen Soln 650 MG/20.3 ML UD Cup PO SCH ×3 (00:49→12:01)
[2017-05-05] MEDS: Lansoprazole 30 MG Orally Disintegrating Tab.CR PO SCH (07:41)
[2017-05-05] MEDS: Insulin Aspart 100 Units/ML 3 ML Pen SUBCUT SCH ×2 (08:04→11:27)
[2017-05-05] MEDS: Gabapentin 250 MG/5 ML Solution ML 470 ML Bottle PO SCH (08:19)
[2017-05-05] MEDS: Metoprolol Succinate 50 MG Tab.ER PO SCH (08:20)
[2017-05-05] MEDS: Sodium Bicarbonate 650 MG Tab PO SCH (08:20)
[2017-05-05] MEDS: Cetirizine 10 MG Tab PO SCH (08:20)
[2017-05-05] MEDS: amLODIPine 10 MG Tab PO SCH (08:21)
[2017-05-05] MEDS: Insulin Detemir 100 Units/ML 3 ML Pen SUBCUT SCH (09:17)
--- NOTE | 2017-05-07 09:40 | DISCH ---
FINAL DIAGNOSES: 1. Morbid obesity. 2. Marked hepatomegaly. 3. 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 4. Renal insufficiency. 5. Type 2 diabetes mellitus. 6. Treated hypothyroidism. 7. Hypertension. 8. Hyperlipidemia. 9. Congestive heart failure with left ventricular dysfunction. 10.Anemia associated with chronic kidney disease. 11.Obstructive sleep apnea, on CPAP. 12.History of atrial fibrillation. OPERATIVE PROCEDURE: Diagnostic laparoscopy with: 1. Laparoscopic sleeve gastrectomy. 2. Ishmael-Cut needle liver biopsy. SUMMARY/HOSPITAL COURSE: This is a 46-year-old female with extensive medical problems, presenting for bariatric surgery. The plan initially was to proceed with a Eliazar-en-Y gastric bypass. Upon entering the abdomen, both the abdominal wall and the mesentery were extremely immobile, making the formation of the gastrojejunostomy, which required significant mobilization of the mesentery, an unsafe proposition. Given this, we opted into a sleeve gastrectomy. Postoperatively, the patient did have some flair of her renal insufficiency, going from a creatinine of 2.5, up to 4.6. This has come down and presently is 3.8, and she is making good urine output. The oral intake thus far has also been good, and at this point, she has become satisfactorily mobile. From a diabetic standpoint, she has been switched over to b.i.d. Levemir dosing, with the last 3 days receiving 25 units of Levemir b.i.d. With that, her blood sugars in the last 24 hours have ranged between 106 and 137, i.e. good control. Plan will be to have her adjust the Levemir dose up or down, keeping the blood sugars in the 100-200 range, and bring the blood sugar log to the followup appointment. MEDICATIONS ON DISCHARGE: Sodium bicarbonate 650 mg b.i.d., hydralazine 25 mg p.o. t.i.d., amlodipine 10 mg daily, warfarin 5 mg p.o. daily, this will be a somewhat decreased dose. ProTime will be checked on Sunday, i.e., in 4 days. With the relative difficulty maintaining adequate liquid intake and renal insufficiency, we will cut down the Lasix to 40 mg daily. Continue the Crestor 20 mg a day, Vistaril 25 mg p.o. q.6 hours p.r.n., Synthroid 137 mcg p.o. daily, iron sulfate 140 mg p.o. daily, Zyrtec 10 mg daily, vitamin C 100 mg p.o. daily, Humulin and NovoLog will be held and the Levemir ordered as above, magnesium oxide 400 mg daily, and metoprolol-XL at 100 mg p.o. daily. We will also continue the gabapentin 300 mg p.o. b.i.d. She is instructed, she should avoid nonsteroidal anti- inflammatory drugs and can be taking Tylenol. She will not be receiving any narcotics during the postoperative period. Plan will be to follow up with Yissel Steinberg at [facility] next Sunday. At that time, obtain a CBC, CMP, magnesium, phosphorus, BNP, and a ProTime and should be instructed not go beyond the liquid diet for one month postoperatively, i.e. until 05/30/2017.
== END 2017-05-05 14:30 | disposition home or self-care (01) | DRG 403 ==
LOC: JP.SDS 09:34 → JP.SDSSCHI 09:34 → EDSTATUS 13:15 → JP.2SS 16:15
PROVIDERS: ADMIT Surgery; ATTEND Surgery
PROC: 0DB64Z3 Excision of Stomach, Percutaneous Endoscopic Approach, Vertical (ICD-10-PCS; principal; 2017-04-30)
PROC: 3E0T3BZ Introduction of Anesthetic Agent into Peripheral Nerves and Plexi, Percutaneous Approach (ICD-10-PCS; 2017-04-30)
PROC: 0FB24ZX Excision of Left Lobe Liver, Percutaneous Endoscopic Approach, Diagnostic (ICD-10-PCS; 2017-04-30)
DX: E66.01 Morbid (severe) obesity due to excess calories (principal); Z68.44 Body mass index [BMI] 60.0-69.9, adult; R16.0 Hepatomegaly, not elsewhere classified; K76.0 Fatty (change of) liver, not elsewhere classified; K59.8 Other specified functional intestinal disorders; I13.0 Hypertensive heart and chronic kidney disease with heart failure and stage 1 through stage 4 chronic kidney disease, or unspecified chronic kidney disease; E11.22 Type 2 diabetes mellitus with diabetic chronic kidney disease; E11.65 Type 2 diabetes mellitus with hyperglycemia; N18.4 Chronic kidney disease, stage 4 (severe); I50.1 Left ventricular failure, unspecified; Z79.4 Long term (current) use of insulin; E11.40 Type 2 diabetes mellitus with diabetic neuropathy, unspecified; I48.91 Unspecified atrial fibrillation; G47.33 Obstructive sleep apnea (adult) (pediatric); Z86.14 Personal history of Methicillin resistant Staphylococcus aureus infection; D63.1 Anemia in chronic kidney disease; I42.9 Cardiomyopathy, unspecified; E78.5 Hyperlipidemia, unspecified; Z87.891 Personal history of nicotine dependence; E87.5 Hyperkalemia; N17.9 Acute kidney failure, unspecified; Z79.01 Long term (current) use of anticoagulants; Z91.018 Allergy to other foods; Z88.0 Allergy status to penicillin
CPT/HCPCS: 36415; 74240; 74240-26; 80048; 80053; 82962; 83735; 83880; 84100; 85027; 85610; 86850; 86900; 86901; 88305; 88307; 88313; A9270-GY; C9113; J0171; J0330; J0694; J1100; J1644; J1650; J2001; J2175; J2405; J2704; J2710; J2795; J3010; J3410; J3411; J3420; J7030; J7040; J7042; J7050; J7120; Q9967